=== PATIENT | male | born 1965 | race Caucasian/White ===

== ENCOUNTER 2024-08-05 21:57 | Emergency (ER) | payer BC, SELFPAY ==
[2024-08-05 22:04] VITALS: BP 153/95
--- NOTE | 2024-08-05 23:01 | ED.GENMED ---
History of Present Illness
General
Chief Complaint: Skin Problem
Source: patient
Exam Limitations: none
Time Seen by Provider: 08/05/24 22:59
Nursing documentation reviewed up to this point in time: agreed with
History of Present Illness
History of Present Illness:
Note:
CHIEF COMPLAINT(S)
Swelling and pain in the ankle.
HISTORY OF PRESENT ILLNESS
The patient is a 58-year-old male with pmh of varicose veins, htn, hlp, thyroid cancer, who presented with swelling and pain localized to the ankle, starting around 3:00 PM the previous day. The symptoms worsened towards the evening. The patient
reported some relief with ibuprofen, which was taken overnight and again the next morning; however, the symptoms flared up again by the evening. The patient noted improvement upon elevating the leg, with a slight reduction in swelling. Pain is
described as very severe, particularly with movement or weight bearing. The patient denies any history of gout and has no systemic symptoms besides feeling slightly feverish without confirming an elevated temperature. The patient experienced chills
tonight. No recent insect bites or trauma was recalled, and no lateral pain was noted. The patient undertook a long car journey of 200 miles recently. There is no involvement of the calf or any other parts of the leg, and the patient retains a good
range of motion.
ADDITIONAL HISTORY OBTAINED FROM SOURCES OTHER THAN THE PATIENT
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
PHYSICAL EXAM
General: Patient is well appearing and in no acute distress; non-toxic
Skin: Warm and dry, 3 cm by 4 cm patch of erythema noted to left medial ankle
Head: Normocephalic, atraumatic
Eyes: Sclera non-icteric. EOMs intact.
Cardiac: Regular rate
Peripheral Vascular: 2+ DP and PT pulses bilaterally, left ankle swelling noted
Pulm: Normal respiratory effort
Musculoskeletal: Full range of motion in bilateral lower extremities. No bony tenderness to palpation over the dorsum of the foot.
Neuro: CN II-XII intact, no focal neurologic deficits. Sensation intact.
Psychiatric: Appropriate mood and affect.
PLAN
1. Obtain a duplex ultrasound to evaluate for vascular issues.
2. Perform an X-ray of the ankle to rule out any bony lesions etc.
3. Consideration of possible gout or arthritis-related etiology.
4. Plan to proceed based on imaging results.
DIFFERENTIAL DIAGNOSIS
The Differential Diagnosis includes, in no particular order and is not limited to:
1. Ankle sprain
2. Gout
3. Osteoarthritis
4. Deep vein thrombosis
5. Peripheral vascular disease
6. Rheumatoid arthritis
7. Cellulitis
8. Tendinitis
9. Fracture
DISPOSIOTION/MDM:
58-year-old male presents emergency department today with concerns of atraumatic left ankle swelling and pain. On exam, there is asymmetric swelling mild erythema noted to the medial aspect of the left ankle. He has good range of motion. He has
no fever. His sent for ultrasound which was negative for DVT. His x-ray shows no evidence of acute fracture or dislocation. Perhaps some bony overgrowth associated with osteoarthritis. Suspect possible gout versus osteoarthritis flare. Low
suspicion for developing cellulitis. Will initiate indomethacin. Patient will not take this with his aspirin for this week. Patient will follow-up with orthopedics. Patient stable for discharge. Return precautions discussed
Review of Systems
Review of Systems
All Other Systems: ROS reviewed and negative except as documented in HPI and ROS
Phy Exam
Physical Exam
Physical Exam:
see hpi
Course
Orders/Labs/Results
Orders:
Orders
08/05/24 23:07
CR Ankle - Left 2 Views Urgent
Comment:
Reason For Exam: left ankle and foot swelling/pain
CR Foot - Left 2 Views Urgent
Comment:
Reason For Exam: left ankle and foot swelling/pain
08/05/24 23:38
Ibuprofen [Motrin] 400 mg PO NOW STA
08/06/24 00:00
US Periph Venous LOWER Ext LT Urgent
Reason For Exam: left lower extremity swelling
08/06/24 00:50
Ortho Boot Left- Treatment ONCE
Short or tall?: Short
Vital Signs
Initial and Last Documented VS:
Initial Vital Signs
Temp Pulse Resp BP Pulse Ox
98.8 F 64 20 153/95 100
08/05/24 22:04 08/05/24 22:04 08/05/24 22:04 08/05/24 22:04 08/05/24 22:04
Last Documented Vital Signs
Temp Pulse Resp BP Pulse Ox
98.8 F 65 20 138/81 98
08/05/24 23:38 08/05/24 23:38 08/05/24 23:38 08/05/24 23:38 08/06/24 01:43
MDM/Problems Addressed
Differential Diagnosis Includes:
see hpi
see hpi
see hpi
*Pulse Oximetry
Patient hypoxic: no
*Critical Care Note
Total Time (30-74mins, 75-104mins- exclusive of procedures): Not Applicable
ED Attending Note
-
Portions of this chart may have been created with voice recognition software.� Occasional wrong word or��sound alike� substitutions may have occurred due to the inherent limitations of voice recognition software.
Discharge Plan
Departure
Patient Disposition: Home (Routine Discharge)
Date of Disposition: 08/06/24
Time of Disposition: 01:05
Patient with high blood pressure during this ER visit?: Yes
Condition: Good
Discharge Problem:
Left ankle pain, Ankle swelling
Instructions: Swelling, BLOOD PRESSURE, RICE Therapy
Prescriptions:
New
indomethacin 50 mg capsule
50 mg PO TID 5 Days Qty: 15 0RF
No Action
metoprolol succinate 100 mg Tablet Extended Release 24 Hr
100 mg PO DAILY
amlodipine 5 mg Tablet
5 mg PO BID
hydrochlorothiazide 25 mg Tablet
25 mg PO DAILY
losartan 100 mg Tablet
100 mg PO DAILY
levothyroxine [Synthroid] 175 mcg Tablet
175 mcg PO DAILY
aspirin 325 mg Tablet
325 mg PO DAILY
pantoprazole [Protonix] 40 mg Tablet,Delayed Release (Dr/Ec)
40 mg PO DAILY
rosuvastatin [Crestor] 5 mg Tablet
5 mg PO DAILY
Referrals:
Riley Mittal DPM [Active, Podiatry] - Call in 1-3 days for appt
UNKNOWN - PT DOES,NOT KNOW [Family Provider]
Activity Restrictions/Additional Instructions:
Indomethacin has been sent to your pharmacy. You take 1 tablet 3 times daily.
Please call senior care or schedule appointment with Dr. Mittal's office ([facility]) foot and ankle specialist.
PLEASE RETURN EMERGENCY DEPARTMENT SHOULD YOU DEVELOP SPREADING OF THE REDNESS AROUND THE FOOT OR UP THE LEG, INABILITY TO WALK, FEVERS OR CHILLS, INABILITY MOVE THE ANKLE, LOSS OF SENSATION LOWER EXTREMITY, PALLOR, FEVERS OR CHILLS, OR ANY OTHER
SIGNS OR SYMPTOMS WORRISE TO YOU.
Interventions
Interventions:
*Risk Screen - Suicide Last Done: 08/05/24 22:04
*General Assessment Last Done: 08/05/24 22:04
*Neglect/Abuse Screening Last Done: 08/05/24 22:04
*ED- Fall Risk Assessment Last Done: 08/05/24 22:04
*ED COVID-19 Vaccine History Last Done: 08/05/24 22:04
*Nursing Disposition Last Done: 08/06/24 01:43
ED-Skin Assessment Last Done: 08/05/24 23:50
Discharge Date and Time
Discharge Date/Time: 08/06/24 01:44
Print Language: DJIBOUTIAN
[2024-08-05 23:37] VITALS: BMI 32.9
[2024-08-05 23:38] VITALS: BP 138/81
[2024-08-05] MEDS: MOTRIN 400 MG PO (23:47)
== END 2024-08-06 01:44 | disposition home or self-care (01) ==
LOC: EMR 21:57
PROVIDERS: EMERGENCY PHYSICIAN Student in an Organized Health Care Education/Training Program
DX: M25.572 Pain in left ankle and joints of left foot (principal); R22.42 Localized swelling, mass and lump, left lower limb; I10 Essential (primary) hypertension; E78.00 Pure hypercholesterolemia, unspecified; Z85.850 Personal history of malignant neoplasm of thyroid
CPT/HCPCS: 99284; 73600; 73620; 93971